=== PATIENT | male | born 1995 | race Caucasian/White ===

== ENCOUNTER 2017-07-24 18:59 | Emergency (ER) | payer SELFPAY ==
--- NOTE | 2017-07-24 19:46 | EDM.PDOC ---
ED HPI GENERAL MEDICAL PROBLEM - General Chief Complaint: Gastrointestinal Problem Stated Complaint: THROWING UP AND HAVING ISSUES WITH GAP IN MEDICINE Time Seen by Provider: 07/24/17 19:05 Source of Information: Reports: Patient, Family History Limitations: Reports: No Limitations - History of Present Illness INITIAL COMMENTS - FREE TEXT/NARRATIVE: This is a 22-year-old male. He moved recently from [place] where he was in a program that provided for his emotional and mental needs. Apparently when they moved up here there is no such program and he was under insurance in [place] but that insurance stopped once he left and they're attempting to get insurance here so he can get into a program out of [facility] [employer]. He has run out of his Risperdone for which he takes 4 mg at night time. His last dose was last night. Since he's been here his mother states that he has been having these episodes of coughing or paroxysms of coughing where he will vomit due to the coughing. The patient himself states he is not nauseated he has no stomach pain he is urinating without difficulty and has had no diarrhea. With the recent move he starting to eat more and he is developing a little belly according to the mother and he is also smoking a lot more. Due to this persistent cough him being out of medications and the nausea and vomiting she brings him to the ER. I attempted to elicit a diagnosis of she could tell me was he had a form of autism but not sure what kind, ADHD, some sort of bipolar disorder and a brain processing difficulty where he can't think things through. She does state that with this program in [place] he was doing much better. The patient himself is very cooperative and smiling and appears to be at rest. - Related Data Allergies Allergy/AdvReac Type Severity Reaction Status Date / Time No Known Allergies Allergy Verified 07/24/17 19:18 Home Meds: Home Meds Azithromycin [IJD: Azithromycin] 250 mg PO ASDIRECTED #6 tab 07/24/17 [Rx] risperiDONE 1 tab PO BEDTIME 07/24/17 [History] risperiDONE 4 mg PO DAILY #30 tablet 07/24/17 [Rx] Past Medical History Musculoskeletal History: Reports: Fracture Psychiatric History: Reports: ADHD, Autism, Depression, Suicide Attempt, Suicidal Ideation, Other (See Below) Other Psychiatric History: "[age] with psychotic feat." - Past Surgical History Other Musculoskeletal Surgeries/Procedures:: leg surgery Social & Family History - Family History Family Medical History: Noncontributory - Tobacco Use Smoking Status *Q: Current Every Day Smoker Years of Tobacco use: 4 Packs/Tins Daily: 1 - Recreational Drug Use Recreational Drug Use: Yes Drug Use in Last 12 Months: Yes Recreational Drug Type: Reports: Marijuana/Hashish Recreational Drug Use Frequency: Weekly ED ROS GENERAL - Review of Systems Review Of Systems: See Below Constitutional: Reports: Malaise, Weight Gain. Denies: Fever, Chills HEENT: Reports: No Symptoms Respiratory: Reports: Cough. Denies: Shortness of Breath, Wheezing Cardiovascular: Denies: Chest Pain Endocrine: Reports: No Symptoms GI/Abdominal: Reports: Vomiting. Denies: Abdominal Pain, Constipation, Diarrhea , Nausea : Reports: No Symptoms Musculoskeletal: Reports: No Symptoms Skin: Reports: No Symptoms Neurological: Reports: Other (History of him for autism, ADHD and some form of bipolar disorder) Psychiatric: Reports: Other (As per history of present illness) Hematologic/Lymphatic: Reports: No Symptoms ED EXAM, GENERAL - Physical Exam Exam: See Below Exam Limited By: No Limitations General Appearance: Alert, WD/WN, No Apparent Distress Eye Exam: Bilateral Eye: Normal Inspection Ears: Normal External Exam, Normal Canal, Normal TMs Nose: Normal Inspection Throat/Mouth: Normal Inspection, Normal Lips, Normal Voice, No Airway Compromise Head: Normocephalic Neck: Normal Inspection, Supple, Non-Tender Respiratory/Chest: No Respiratory Distress, Lungs Clear, Normal Breath Sounds Cardiovascular: Regular Rate, Rhythm, No Murmur GI/Abdominal: Soft, Non-Tender, No Distention, No Mass Back Exam: Full Range of Motion Extremities: Normal Inspection, Normal Range of Motion Neurological: Alert, Oriented Psychiatric: Normal Affect, Normal Mood Skin Exam: Warm, Dry Course - Vital Signs Last Recorded V/S: Last Vital Signs Temp 97.8 F 07/24/17 19:13 Pulse 83 07/24/17 19:13 Resp 16 07/24/17 19:13 BP 126/80 07/24/17 19:13 Pulse Ox 97 07/24/17 19:13 - Orders/Labs/Meds Labs: Laboratory Tests 07/24/17 07/24/17 Range/Units 19:54 19:54 WBC 4.85 (4.23-9.07) K/mm3 RBC 5.80 (4.63-6.08) M/mm3 Hgb 16.2 (13.7-17.5) gm/L Hct 47.2 (40.1-51.0) % MCV 81.4 (79.0-92.2) fl MCH 27.9 (25.7-32.2) pg MCHC 34.3 (32.2-35.5) g/dl RDW Std Deviation 39.0 (35.1-43.9) fL Plt Count 201 (163-337) K/mm3 MPV 9.6 (9.4-12.3) fl Neut % (Auto) 44.5 (34.0-67.9) % Lymph % (Auto) 42.9 (21.8-53.1) % [place] % (Auto) 9.5 (5.3-12.2) % Eos % (Auto) 2.5 (0.8-7.0) Baso % (Auto) 0.2 (0.1-1.2) % Neut # (Auto) 2.16 (1.78-5.38) K/mm3 Lymph # (Auto) 2.08 (1.32-3.57) K/mm3 [place] # (Auto) 0.46 (0.30-0.82) K/mm3 Eos # (Auto) 0.12 (0.04-0.54) K/mm3 Baso # (Auto) 0.01 (0.01-0.08) K/mm3 Sodium 140 (136-145) mEq/L Potassium 4.2 (3.5-5.1) mEq/L Chloride 104 (98-107) mEq/L Carbon Dioxide 28 (21-32) mEq/L Anion Gap 12.2 (5-15) BUN 11 (7-18) mg/dL Creatinine 1.1 (0.7-1.3) mg/dL Est Cr Clr Drug Dosing 130.42 mL/min Estimated GFR (MDRD) > 60 (>60) mL/min BUN/Creatinine Ratio 10.0 L (14-18) Glucose 100 (74-106) mg/dL Calcium 9.5 (8.5-10.1) mg/dL Total Bilirubin 0.4 (0.2-1.0) mg/dL AST 18 (15-37) U/L ALT 29 (16-63) U/L Alkaline Phosphatase 73 (46-116) U/L Total Protein 7.9 (6.4-8.2) g/dl Albumin 4.1 (3.4-5.0) g/dl Globulin 3.8 gm/dL Albumin/Globulin Ratio 1.1 (1-2) - Re-Assessments/Exams Free Text/Narrative Re-Assessment/Exam: 07/24/17 20:58 I spoke to the mother and the patient regarding the test results his CBC and CMP were perfectly normal. He does have positive strep on the screen. I'll provide him with a Z-Willy as well as refill his Risperdone for 30 days so they' ll have a chance to get into the [facility] for continued treatment. Departure - Departure Time of Disposition: 20:59 Disposition: Home, Self-Care 01 Condition: Good Clinical Impression: Streptococcal pharyngitis ADHD Qualifiers: Attention deficit-hyperactivity disorder type: other Qualified Code(s): F90.8 - Attention-deficit hyperactivity disorder, other type Bipolar disorder Qualifiers: Active/Remission status: in remission of unspecified degree Qualified Code(s): F31.70 - Bipolar disorder, currently in remission, most recent episode unspecified - Discharge Information Prescriptions: Azithromycin [IJD: Azithromycin] 250 mg PO ASDIRECTED #6 tab risperiDONE 4 mg PO DAILY #30 tablet Referrals: PCP,None [Primary Care Provider] - Forms: ED Department Discharge Additional Instructions: Rest and sleep as much as possible, get some [id number] Robitussin or Delsym for his cough, take the antibiotics faithfully, resume the Risperdal and at night time and then follow up with [facility], drink lots of fluids but no sugar, follow up with the walk-in clinic or if you get a family doctor or the ER as needed
== END 2017-07-24 21:15 | disposition home or self-care (01) ==
LOC: JD.ED 18:59
DX: J02.0 Streptococcal pharyngitis (principal); F31.70 Bipolar disorder, currently in remission, most recent episode unspecified; F90.8 Attention-deficit hyperactivity disorder, other type; F17.210 Nicotine dependence, cigarettes, uncomplicated; Z79.899 Other long term (current) drug therapy
CPT/HCPCS: 36415; 80053; 85025; 87430; 99283

== ENCOUNTER 2017-09-21 19:08 | Emergency (ER) | payer SELFPAY ==
--- NOTE | 2017-09-21 20:19 | EDM.PDOC ---
ED HPI GENERAL MEDICAL PROBLEM - General Chief Complaint: Medication Administration Stated Complaint: NEEDS A MED REFILL Time Seen by Provider: 09/21/17 19:30 Source of Information: Reports: Family (mother) History Limitations: Reports: No Limitations - History of Present Illness INITIAL COMMENTS - FREE TEXT/NARRATIVE: 22-year-old male presents with his mother for refill of his Risperdal. Patient has been on Risperdal 4 mg 1 tab nightly for the last 3 years. He has done well on this. Mom reports that he is on this for autism and ADHD. He has now been off his Risperdal for the last 3 days. Mom reports they recently moved to [place] and have her having difficulty switching insurance. Therefore, they have not been able to see a primary care provider or psychiatrist for a refill. The plan is to return to [place] in about 3 weeks. They have no other concerns at this time. - Related Data Allergies Allergy/AdvReac Type Severity Reaction Status Date / Time No Known Allergies Allergy Verified 09/21/17 19:22 Home Meds: Home Meds risperiDONE 4 mg PO DAILY #30 tablet 07/24/17 [Rx] risperiDONE [Risperdal] 4 mg PO DAILY #30 tablet 09/21/17 [Rx] Past Medical History - Past Health History Medical/Surgical History: Denies Medical/Surgical History Musculoskeletal History: Reports: Fracture Psychiatric History: Reports: ADHD, Autism, Depression, Suicide Attempt, Suicidal Ideation, Other (See Below) Other Psychiatric History: "[age] with psychotic feat." - Past Surgical History Other Musculoskeletal Surgeries/Procedures:: leg surgery Social & Family History - Family History Family Medical History: Noncontributory - Tobacco Use Smoking Status *Q: Unknown Ever Smoked Years of Tobacco use: 4 Packs/Tins Daily: 1 - Recreational Drug Use Recreational Drug Use: No Drug Use in Last 12 Months: Yes Recreational Drug Type: Reports: Marijuana/Hashish Recreational Drug Use Frequency: Weekly ED ROS GENERAL - Review of Systems Review Of Systems: ROS reveals no pertinent complaints other than HPI. ED EXAM, GENERAL - Physical Exam Exam: See Below Exam Limited By: No Limitations General Appearance: Alert, WD/WN, No Apparent Distress Respiratory/Chest: No Respiratory Distress Neurological: Alert, Normal Cognition Psychiatric: Normal Affect, Normal Mood Skin Exam: Warm, Dry, Normal Color Course - Vital Signs Last Recorded V/S: Last Vital Signs Temp 37.1 C 09/21/17 19:20 Pulse 73 09/21/17 19:20 Resp 17 09/21/17 19:20 BP 116/76 09/21/17 19:20 Pulse Ox 99 09/21/17 19:20 Departure - Departure Time of Disposition: 20:07 Disposition: Home, Self-Care 01 Condition: Fair Clinical Impression: Autism, Bipolar disorder, ADHD - Discharge Information Prescriptions: risperiDONE [Risperdal] 4 mg PO DAILY #30 tablet Referrals: PCP,None [Primary Care Provider] - Forms: ED Department Discharge Additional Instructions: Continue taking your risperidone 1 tab daily. [place] [facility] [employer] [facility] and in the [facility] store is open until 10 PM tonight. Follow-up with family medicine for further management and refills. Please return to the ER for symptoms change or worsen.
== END 2017-09-21 20:36 | disposition home or self-care (01) ==
LOC: JD.ED 19:08
DX: F84.0 Autistic disorder (principal); F31.9 Bipolar disorder, unspecified; F90.9 Attention-deficit hyperactivity disorder, unspecified type; Z79.899 Other long term (current) drug therapy
CPT/HCPCS: 99281; 99283